=== PATIENT | female | born 1955 | race Hispanic/Latino ===

== ENCOUNTER 2019-02-07 11:51 | Emergency (ER) | payer OTHER ==
--- NOTE | 2019-02-07 13:08 | ER ---
Nurse's Notes [facility] Name: Carine Ray Age: 63 yrs Sex: Female : 1955 Arrival Date: 02/07/2019 Time: 11:55 Bed 25 Private MD: Diagnosis: Acute pharyngitis Presentation: 02/07 12:02 Presenting complaint: Patient states: i have a bad sore throat that started last Friday hj and body aches that started a day or 2; denies taking meds [employer]; denies fever;. Transition of care: patient was not received from another setting of care. Onset of symptoms was February 07, 2019. Risk Assessment: Do you want to hurt yourself or someone else? Patient reports no desire to harm self or others. Initial Sepsis Screen: Does the patient meet any 2 criteria? No. Patient's initial sepsis screen is negative. Does the patient have a suspected source of infection? No. Patient's initial sepsis screen is negative. Care prior to arrival: None. 12:02 Method Of Arrival: Ambulatory hj 12:02 Acuity: ESTEFANY 4 hj Triage Assessment: 12:05 General: Appears in no apparent distress. uncomfortable, Behavior is calm, cooperative, hj appropriate for age. Pain: Complains of pain in throat Pain currently is 9 out of 10 on a pain scale. EENT: Reports pain. Historical: - Allergies: 12:05 No Known Allergies; hj - Home Meds: 12:05 levothyroxine 100 mcg tab 1 tab once daily [Active]; atorvastatin 10 mg oral tab 1 tab hj once daily [Active]; Omeprazole Oral once daily [Active]; - PMHx: 12:05 Hypothyroidism; Hyperlipidemia; hj - PSHx: 12:05 uterine prolapse; colon surgery; hj - Immunization history:: Adult Immunizations up to date. - Social history:: Smoking status: Patient/guardian denies using tobacco, Patient/guardian denies using alcohol. - Ebola Screening: : Patient negative for fever greater than or equal to 101.5 degrees Fahrenheit, and additional compatible Ebola Virus Disease symptoms Patient denies exposure to infectious person Patient denies travel to an Ebola-affected area in the 21 days before illness onset. Screenin:05 Abuse screen: Denies threats or abuse. Denies injuries from another. Nutritional hj screening: No deficits noted. Tuberculosis screening: No symptoms or risk factors identified. Fall Risk None identified. Assessment: 12:05 Respiratory: Airway is patent Respiratory effort is even, unlabored, Respiratory hj pattern is regular, symmetrical, Breath sounds are clear. EENT: Throat. 13:08 General: Appears in no apparent distress. comfortable, Behavior is calm, cooperative, ca1 appropriate for age, Reports body aches since Friday and worst since . Reports of sore throat. Neuro: Level of Consciousness is awake, alert, obeys commands, Oriented to person, place, time, situation. Cardiovascular: Heart tones S1 S2 present Capillary refill < 3 seconds Patient's skin is warm and dry. Respiratory: Airway is patent Respiratory effort is even, unlabored, Respiratory pattern is regular, symmetrical, Breath sounds are clear bilaterally. Respiratory: Denies cough. GI: No deficits noted. No signs and/or symptoms were reported involving the gastrointestinal system. : No deficits noted. No signs and/or symptoms were reported regarding the genitourinary system. EENT: Throat is reddened. EENT: Denies nasal congestion, nasal discharge. Derm: Skin is intact, is healthy with good turgor, Skin is pink, warm \T\ dry. Musculoskeletal: Circulation, motion, and sensation intact. Capillary refill < 3 seconds. 13:34 Reassessment: Patient appears in no apparent distress at this time. Patient is alert, ca1 oriented x 3, equal unlabored respirations, skin warm/dry/pink. pt stable. A\T\Ox4. Vital Signs: 12:06 Pulse 80; Resp 18; Temp 97.8(O); Pulse Ox 100% on R/A; Weight 66.68 kg; Height 5 ft. 2 in. (157.48 cm); Pain 9/10; 13:08 BP 138 / 84; Pulse 77; Resp 19; Pulse Ox 95% on R/A; ca1 13:34 BP 130 / 72; Pulse 75; Resp 19; Pulse Ox 100% on R/A; ca1 12:06 Body Mass Index 26.89 (66.68 kg, 157.48 cm) ED Course: 11:55 Patient arrived in ED. mr 12:03 Triage completed. 12:06 Arm band placed on right wrist. 12:06 Patient has correct armband on for positive identification. Bed in low position. Call light in reach. Side rails up X 1. Adult w/ patient. 12:08 Renee Whitney FNP-C is [facility]. kb 12:08 Fermin Gonzalez MD is Attending Physician. kb 12:24 Strep Sent. hj 12:24 Flu Sent. hj 12:53 Noa Hickman, RN is Primary Nurse. ca1 13:08 Pulse ox on. NIBP on. ca1 13:08 No provider procedures requiring assistance completed. Patient did not have IV access ca1 during this emergency room visit. Administered Medications: No medications were administered Outcome: 13:07 Discharge ordered by . kb 13:34 Discharged to home ambulatory, with family. ca1 13:34 Condition: stable 13:34 Discharge instructions given to patient, Instructed on discharge instructions, follow up and referral plans. Demonstrated understanding of instructions, follow-up care. 13:35 Patient left the ED. ca1 Signatures: Renee Whitney FNP-C FNP-Ckb Ama Reddy Humberto Downs RN RN Noa Hickman, LUANA RN ca1
--- NOTE | 2019-02-07 13:08 | EDPHYS ---
Physician Documentation [facility] Name: Carine Ray Age: 63 yrs Sex: Female : 1955 Arrival Date: 02/07/2019 Time: 11:55 Bed 25 Private MD: ED Physician Fermin Gonzalez HPI: 02/07 13:05 This 63 yrs old Female presents to ER via Ambulatory with complaints of Sore kb Throat, Body aches. 13:05 The patient presents with sore throat. The patient describes throat pain as constant. kb Onset: The symptoms/episode began/occurred 7 day(s) ago. Severity of symptoms: At their worst the symptoms were moderate, in the emergency department the symptoms are unchanged. Modifying factors: The symptoms are alleviated by nothing, the symptoms are aggravated by swallowing, Patient's oral intake status: good unaware of sick contact. Associated signs and symptoms: Pertinent positives: body aches. The patient has not experienced similar symptoms in the past. The patient has not recently seen a physician. Historical: - Allergies: 12:05 No Known Allergies; hj - Home Meds: 12:05 levothyroxine 100 mcg tab 1 tab once daily [Active]; atorvastatin 10 mg oral tab 1 tab hj once daily [Active]; Omeprazole Oral once daily [Active]; - PMHx: 12:05 Hypothyroidism; Hyperlipidemia; hj - PSHx: 12:05 uterine prolapse; colon surgery; hj - Immunization history:: Adult Immunizations up to date. - Social history:: Smoking status: Patient/guardian denies using tobacco, Patient/guardian denies using alcohol. - Ebola Screening: : Patient negative for fever greater than or equal to 101.5 degrees Fahrenheit, and additional compatible Ebola Virus Disease symptoms Patient denies exposure to infectious person Patient denies travel to an Ebola-affected area in the 21 days before illness onset. ROS: 13:05 Neck: Negative for injury, pain, and swelling, Cardiovascular: Negative for chest pain, kb palpitations, and edema, Respiratory: Negative for shortness of breath, cough, wheezing, and pleuritic chest pain, Abdomen/GI: Negative for abdominal pain, nausea, vomiting, diarrhea, and constipation, MS/Extremity: Negative for injury and deformity, Skin: Negative for injury, rash, and discoloration, Neuro: Negative for headache, weakness, numbness, tingling, and seizure. 13:05 Constitutional: Positive for body aches, Negative for chills, fatigue, fever, malaise, poor PO intake, weight loss. 13:05 ENT: Positive for sore throat. Exam: 13:05 Constitutional: This is a well developed, well nourished patient who is awake, alert, kb and in no acute distress. Head/Face: Normocephalic, atraumatic. Neck: Trachea midline, no thyromegaly or masses palpated, and no cervical lymphadenopathy. Supple, full range of motion without nuchal rigidity, or vertebral point tenderness. No Meningismus. Chest/axilla: Normal chest wall appearance and motion. Nontender with no deformity. No lesions are appreciated. Cardiovascular: Regular rate and rhythm with a normal S1 and S2. No gallops, murmurs, or rubs. Normal PMI, no JVD. No pulse deficits. Respiratory: Lungs have equal breath sounds bilaterally, clear to auscultation and percussion. No rales, rhonchi or wheezes noted. No increased work of breathing, no retractions or nasal flaring. Abdomen/GI: Soft, non-tender, with normal bowel sounds. No distension or tympany. No guarding or rebound. No evidence of tenderness throughout. Skin: Warm, dry with normal turgor. Normal color with no rashes, no lesions, and no evidence of cellulitis. MS/ Extremity: Pulses equal, no cyanosis. Neurovascular intact. Full, normal range of motion. Neuro: Awake and alert, GCS 15, oriented to person, place, time, and situation. Cranial nerves II-XII grossly intact. Motor strength 5/5 in all extremities. Sensory grossly intact. Cerebellar exam normal. Normal gait. 13:05 ENT: Posterior pharynx: Airway: normal, no evidence of obstruction, Tonsils: are normal in appearance, Uvula: normal, midline, swelling, is not appreciated, erythema, that is mild, exudate, is not appreciated. Vital Signs: 12:06 Pulse 80; Resp 18; Temp 97.8(O); Pulse Ox 100% on R/A; Weight 66.68 kg; Height 5 ft. 2 hj in. (157.48 cm); Pain 9/10; 13:08 BP 138 / 84; Pulse 77; Resp 19; Pulse Ox 95% on R/A; ca1 13:34 BP 130 / 72; Pulse 75; Resp 19; Pulse Ox 100% on R/A; ca1 12:06 Body Mass Index 26.89 (66.68 kg, 157.48 cm) MDM: 12:14 Patient medically screened. kb 13:06 Data reviewed: vital signs, nurses notes. Data interpreted: Pulse oximetry: on room air kb is 100 %. Interpretation: normal. Counseling: I had a detailed discussion with the patient and/or guardian regarding: the historical points, exam findings, and any diagnostic results supporting the discharge/admit diagnosis, lab results, the need for outpatient follow up, a family practitioner, to return to the emergency department if symptoms worsen or persist or if there are any questions or concerns that arise at home. 02/07 12:07 Order name: Flu; Complete Time: 12:46 02/07 12:07 Order name: Strep; Complete Time: 12:46 02/07 12:43 Order name: Throat Culture EDMS Administered Medications: No medications were administered Disposition: 02/08 07:34 Co-signature as Attending Physician, Fermin Gonzalez MD I agree with the assessment and [facility] plan of care. Disposition: 02/07/19 13:07 Discharged to Home. Impression: Acute pharyngitis. - Condition is Stable. - Discharge Instructions: Pharyngitis, [id number], Viral Respiratory Infection, [id number], Sore Throat, [id number]. - Medication Reconciliation Form, Thank You Letter, Antibiotic Education, Prescription Opioid Use form. - Follow up: Emergency Department; When: As needed; Reason: Worsening of condition. Follow up: Private Physician; When: 2 - 3 days; Reason: Recheck today's complaints, Continuance of care, Re-evaluation by your physician. Signatures: Dispatcher [employer] EDMS Renee Whitney FNP-C FNP-Ckb Anderson, Corey, MD MD cha Joaquin, Henry, RN RN hj Acob, Cheryl, RN RN ca1 Corrections: (The following items were deleted from the chart) 02/07 13:35 13:07 02/07/2019 13:07 Discharged to Home. Impression: Acute pharyngitis. Condition is ca1 Stable. Forms are Medication Reconciliation Form, Thank You Letter, Antibiotic Education, Prescription Opioid Use. Follow up: Emergency Department; When: As needed; Reason: Worsening of condition. Follow up: Private Physician; When: 2 - 3 days; Reason: Recheck today's complaints, Continuance of care, Re-evaluation by your physician. kb
== END 2019-02-07 13:35 | disposition home or self-care (01) ==
LOC: ER 11:51
DX: J02.9 Acute pharyngitis, unspecified (principal); E03.9 Hypothyroidism, unspecified; E78.5 Hyperlipidemia, unspecified
CPT/HCPCS: 87070; 87081; 87804; 99283